=== PATIENT | female | born 1965 | race Two or more races ===

== ENCOUNTER 2024-01-02 07:32 | Day surgery (SDC) | payer MEDICAID ==
[2023-12-31 09:52] LABS: Basophils # (auto) 0 10 ^3/uL (0-0.2); Basophils % (auto) 0.5 % (0.0-2.0); Eosinophils # (auto) 0.1 10 ^3/uL (0-0.8); Eosinophils % (auto) 1.9 % (0.0-7.0); Hematocrit 41.9 % (36.0-46.0); Hemoglobin 14.3 g/dL (12.2-16.2); Lymphocytes # (auto) 1.7 10 ^3/uL (0.4-5.4); Lymphocytes % (auto) 37.7 % (10.0-50.0); Mean Corpuscular Hemoglobin 31.2 pg (28.0-32.0); Mean Corpuscular Hgb Conc. 34.1 g/dL (32.0-36.0); Mean Corpuscular Volume 91.5 fL (80.0-100.0); Monocytes # (auto) 0.5 10 ^3/uL (0-1.3); Monocytes % (auto) 10.2 % (0.0-12.0); Neutrophils # (auto) 2.3 10 ^3/uL (1.6-8.6); Neutrophils % (auto) 49.7 % (37.0-80.0); Nucleated Red Blood Cells % 0.1 %; Platelet Count (auto) 125 10^3/uL (140-450); Red Blood Cells 4.57 10^6/uL (4.0-5.20); Red Cell Distribution Width 14.1 % (11.8-14.3); White Blood Cell 4.5 10^3/uL (4.4-10.8)
[2023-12-31 10:20] LABS: Alanine Aminotransferase 25 U/L (7-40); Albumin 4.3 g/dL (3.2-4.8); Alkaline Phosphatase 80 U/L (46-116); Anion Gap 3 (5-15); Aspartate Aminotransferase 22 U/L (13-40); BUN/Creatinine Ratio 23.5 (10.0-20.0); Bilirubin, Total 0.5 mg/dL (0.2-1.0); Blood Urea Nitrogen 16 mg/dL (9-23); Calcium 10.7 mg/dL (8.7-10.4); Carbon Dioxide 28 mmol/L (20-31); Chloride 111 mmol/L (98-107); Glucose 101 mg/dL (74-106); Potassium 4.5 mmol/L (3.5-5.1); Sodium 142 mmol/L (136-145); Total Protein 7.4 g/dL (5.7-8.2)
[2023-12-31 10:29] LABS: INR 1.03 (0.9-1.15); Partial Thromboplastin Time 27.4 SEC (24.5-34.5); Prothrombin Time 10.9 sec (9.3-11.8)
[~2024-01-02] VITALS: Ht 152.4 cm; Wt 90.7 kg
[2024-01-02] MEDS ORDERED: diphenhdrAMINE HCL 50 MG/1 ML VL ONE (08:17)
[2024-01-02] MEDS ORDERED: SODIUM CHLORIDE LOCK 10 ML ONE (08:17)
[2024-01-02] MEDS ORDERED: LIDOCAINE VISCOUS 2% 15ML UD ONE (08:17)
[2024-01-02] MEDS: fentaNYL CITRATE 100 MCG/2 ML VL ONE (08:49)
[2024-01-02] MEDS: MIDAZOLAM HCL 5 MG/ML-1ML VIAL ONE (08:49)
[2024-01-02 09:07] VITALS: TEMP 97.4; O2SAT 93
[2024-01-02 09:43] VITALS: BP 108/61; PULSE 50; RESP 12; O2SAT 99
== END 2024-01-02 09:49 | disposition home or self-care (01) ==
LOC: GI 07:32
PROVIDERS: ATTEND Specialist
DX: R10.9 Unspecified abdominal pain (principal); K29.50 Unspecified chronic gastritis without bleeding; K21.00 Gastro-esophageal reflux disease with esophagitis, without bleeding; K44.9 Diaphragmatic hernia without obstruction or gangrene; K22.10 Ulcer of esophagus without bleeding; Z98.51 Tubal ligation status
CPT/HCPCS: 36415; 43239; 80053; 81025; 85025; 85610; 85730; 88305; 88312; 88342; J2250; J3010; 43235